=== PATIENT | female | born 1980 | race Hispanic/Latino ===

== ENCOUNTER 2017-11-06 19:51 | Emergency (ER) | payer OTHER, MEDICAID, SELFPAY ==
[2017-11-06 19:53] VITALS: BP 117/77; PULSE 102; RESP 14; TEMP 36.6; O2SAT 100
--- NOTE | 2017-11-06 19:56 | ED.PREGNANCY ---
HPI - General Chief complaint: Vaginal Bleeding Stated complaint: 13wks preg,bleeding and pain Time Seen by Provider: 11/06/17 19:56 Source: patient and family Mode of arrival: ambulatory Limitations: no limitations History of Present Illness HPI Narrative: 37-year-old female at 13 weeks presents with multiple family members in the chief complaint of mild pelvic cramping and some spotting. She denies any significant pain and has had no fever or chills nor nausea, vomiting or diarrhea. She denies dysuria, frequency or urgency. She had a normal ultrasound at 10 weeks demonstrating an intrauterine MD Complaint: vaginal bleeding Onset (ago): hour(s) Pain Consistency: intermittent and now resolved Location: pelvis Severity: mild Quality: Aching Radiation: pelvis Relieving factors: none Exacerbating factors: none Associated symptoms: vaginal bleeding Vaginal discharge: none Vaginal bleeding: light Patient : Yes Number of Weeks : 13 OB History - Current : no complications OB History - Previous Pregnancies: miscarriage Related Data : 3 Para: 0 Total number of abortions (spontaneous and elective): 2 Home Medications Medication Instructions Recorded Confirmed levothyroxine 75 mcg PO DAILY 11/06/17 11/06/17 prenat 115-iron qem-dinbw-vsw 1 tab PO DAILY 11/06/17 11/06/17 Allergies Allergy/AdvReac Type Severity Reaction Status Date / Time No Known Drug Allergies Allergy Verified 11/06/17 19:57 Review of Systems Review of Systems All systems reviewed & are unremarkable except as noted in HPI and below Constitutional Denies chills, Denies fever(s), Denies lethargy and Denies weakness Eyes Denies change in vision, Denies eye discharge, Denies irritation and Denies loss of vision ENT Ears, Nose, Mouth, and Throat: Denies change in voice, Denies neck pain and Denies sore throat Cardiovascular Denies chest pain, Denies irregular heart rhythm, Denies lightheadedness, Denies palpitations, Denies dyspnea, Denies dyspnea on exertion and Denies orthopnea Respiratory Denies cough, Denies dyspnea, Denies dyspnea on exertion and Denies wheezing Gastrointestinal Gastrointestinal: Denies abdominal pain, Denies change in bowel habits, Denies diarrhea, Denies nausea and Denies vomiting Genitourinary Reports abnormal vaginal bleeding, Denies hematuria, Reports pelvic pain, Denies flank pain, Denies urinary incontinence and Denies urinary urgency Musculoskeletal Denies neck pain Integumentary/Breasts Denies pruritus, Denies erythema, Denies rash and Denies wounds Neurologic Denies confusion, Denies loss of vision and Denies weakness Psychiatric Denies anxiety, Denies confusion, Denies depression, Denies homicidal ideation and Denies suicidal ideation Endocrine Denies palpitations Hematologic/Lymphatic Denies easy bruising Allergic/Immunologic Denies wheezing PMFSH - Past Medical History Medical history: Reports non-contributory Surgical history: Reports non-contributory 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 Patient : Yes Psychiatric history: Reports no psych history Family history: Reports no significant family history Exam Narrative Exam Narrative: Pleasant 37-year-old female is tearful but in no obvious physical distress Initial Vital Signs Initial Vital Signs: Vital Signs Temperature 97.8 F 11/06/17 19:53 Pulse Rate 102 H 11/06/17 19:53 Respiratory Rate 14 11/06/17 19:53 Blood Pressure 117/77 11/06/17 19:53 Pulse Oximetry 100 11/06/17 19:53 Const General: cooperative and well developed Nutritional Appearance: well nourished Orientation: alert, awake, oriented x3 and not confused HENMT Head: normocephalic and atraumatic Ears: external ears normal and TM's normal bilaterally Nose: external nose normal and No nasal discharge Face and sinus: sinuses nontender, face symmetric, no sinus tenderness and No dry mucous membranes Mouth: oral mucosae normal and moist mucous membranes Teeth and gingiva: dentition normal Throat: tonsils normal and uvula midline Eyes General: appearance normal, both eyes and all related structures Eyelids: eyelids normal Conjunctivae: conjunctivae normal Sclera: sclerae normal Pupils: PERRL EOM: EOM intact bilaterally Resp Effort & Inspection: normal respiratory effort, able to speak in complete sentences, no respiratory distress and no use of accessory muscles Auscultation: clear to auscultation bilaterally, no rales, no rhonchi and no wheezes GI Inspection: non-distended Palpation: soft, no hepatosplenomegaly, No guarding, No pulsatile mass and No tender Auscultation: normal bowel sounds Neuro General: alert, oriented x3, gait normal and no focal motor deficits Speech: speech normal Procedures Number of Weeks : 13 Course Orders Ordered: ED Orders 11/06/17 20:42 US OB <= 14 weeks fetus Stat 11/06/17 20:50 Urinalysis and Microscopic Stat 11/06/17 21:15 ABO RH Type Stat Complete Blood Count AUTO DIFF Stat Comprehensive Metabolic Panel Stat Vital Signs - 8 hr 11/06/17 19:53 11/06/17 21:27 11/06/17 22:19 Temperature 97.8 F Pulse Rate 102 H 88 72 Respiratory Rate 14 12 16 Blood Pressure 117/77 108/80 Blood Pressure [Left Arm] 111/69 Pulse Oximetry 100 100 98 MDM - OB/Uterine Contractions Medical Records Attestation: I reviewed the patient's medical records. Lab Data Attestation: I reviewed the patient's lab results. Result diagrams: 11/06/17 21:15 11/06/17 21:15 Lab Results 11/06/17 11/06/17 11/06/17 Range/Units 20:50 21:15 21:15 WBC 10.6 (4.5-11.0) X10^3/uL RBC 5.07 (4.0-5.2) X10^6/uL Hgb 15.0 (12.0-16.0) g/dL Hct 42.6 (36-46) % MCV 84.1 (80-100) fL MCH 29.6 (26-34) PG MCHC 35.2 (30-36) % RDW 13.1 (11.6-14.8) % Plt Count 206 (150-400) X10^3/uL Neut % (Auto) 80.5 H (50-75) % Lymph % (Auto) 13.3 L (25-40) % Long % (Auto) 5.3 (3-14) % Eos % (Auto) 0.6 L (2-4) % Baso % (Auto) 0.3 (0-2) % Neut # (Auto) 8600 H (9246-9324) /uL Sodium (137-145) mmol/L Potassium (3.4-5.1) mmol/L Chloride (98-107) mmol/L Carbon Dioxide (22-32) mmol/L BUN (7-17) mg/dL Creatinine (0.52-1.04) mg/dL Estimated GFR (>60) mL/min BUN/Creatinine Ratio (6-22) Glucose (70-100) mg/dL Calcium (8.4-10.2) mg/dL Total Bilirubin (0.2-1.3) mg/dL AST (14-36) IU/L ALT (9-52) IU/L Alkaline Phosphatase (38-126) U/L Total Protein (6.3-8.2) g/dL Albumin (3.5-5.0) g/dL Globulin (1.7-4.1) g/dL Albumin/Globulin Ratio (1.0-2.8) Urine Color Red Urine Appearance Cloudy Urine pH 8.0 (4.5-8.0) Ur Specific [place] 1.010 (1.000-1.035) Urine Protein 1+ H (Negative) Urine Glucose (UA) Negative (Normal) g/dL Urine Ketones Negative (NEGATIVE) Urine Occult Blood 3+ H (Negative) Urine Nitrate Negative (Negative) Urine Bilirubin Negative (NEGATIVE) Urine Urobilinogen 0.2 (0.2) E.U./dL Ur Leukocyte Esterase Negative (NEGATIVE) Urine RBC >100/hpf H (0-5/HPF) Urine WBC None seen (0-5/HPF) Ur Squamous Epith Cells 0-1 /hpf Urine Bacteria None seen (None) Ur Culture Indicated? Cult not indicated Micro UA Comment Not Reportable Blood Type O Positive 11/06/17 Range/Units 21:15 WBC (4.5-11.0) X10^3/uL RBC (4.0-5.2) X10^6/uL Hgb (12.0-16.0) g/dL Hct (36-46) % MCV (80-100) fL MCH (26-34) PG MCHC (30-36) % RDW (11.6-14.8) % Plt Count (150-400) X10^3/uL Neut % (Auto) (50-75) % Lymph % (Auto) (25-40) % Long % (Auto) (3-14) % Eos % (Auto) (2-4) % Baso % (Auto) (0-2) % Neut # (Auto) (2684-6130) /uL Sodium 142 (137-145) mmol/L Potassium 3.9 (3.4-5.1) mmol/L Chloride 105 (98-107) mmol/L Carbon Dioxide 24 (22-32) mmol/L BUN 8 (7-17) mg/dL Creatinine 0.50 L (0.52-1.04) mg/dL Estimated GFR > 60.0 (>60) mL/min BUN/Creatinine Ratio 16.0 (6-22) Glucose 99 (70-100) mg/dL Calcium 9.8 (8.4-10.2) mg/dL Total Bilirubin 0.3 (0.2-1.3) mg/dL AST 36 (14-36) IU/L ALT 47 (9-52) IU/L Alkaline Phosphatase 53 (38-126) U/L Total Protein 8.2 (6.3-8.2) g/dL Albumin 4.7 (3.5-5.0) g/dL Globulin 3.5 (1.7-4.1) g/dL Albumin/Globulin Ratio 1.3 (1.0-2.8) Urine Color Urine Appearance Urine pH (4.5-8.0) Ur Specific [place] (1.000-1.035) Urine Protein (Negative) Urine Glucose (UA) (Normal) g/dL Urine Ketones (NEGATIVE) Urine Occult Blood (Negative) Urine Nitrate (Negative) Urine Bilirubin (NEGATIVE) Urine Urobilinogen (0.2) E.U./dL Ur Leukocyte Esterase (NEGATIVE) Urine RBC (0-5/HPF) Urine WBC (0-5/HPF) Ur Squamous Epith Cells Urine Bacteria (None) Ur Culture Indicated? Micro UA Comment Blood Type Imaging Data US - abdomen: Radiologist's impression: [place] [address] Ultrasound Report Signed Patient: Luda Hernandez#: [id number] : 1980Acct:[id number] Age/Sex: 37 / FDate of Service: 11/06/17 Loc: ED Accession Number: [id number] Procedure: US OB <= 14 weeks fetus Ordering Provider: Riky Gann D.O. PROCEDURE: US OB <= 14 WEEKS FETUS INDICATIONS: pelvic pain, bleeding, OUTSIDE/PRIOR DATING DATA: Last menstrual period (LMP): Not known. LMP-based estimated date of delivery (FREDERICK): Not available. First dating scan (date and location): None. Estimated date of delivery (FREDERICK) from first dating scan: Not available. TECHNIQUE: Real-time scanning was performed of the fetus and maternal pelvic organs, with image documentation. COMPARISON: None. FINDINGS: Embryo: Single intrauterine gestational sac is seen containing single fetus in vertex presentation. crown-rump length measures 6.38 cm an estimated gestational age of 12 weeks 5 days. heart rate is 180 beats per minute. Placenta location is posterior, no placenta previa. Cervical length is 4.5 cm and is within normal limits. Measurement variability in dating: +/- 4 weeks by LMP, +/- 7 days by mean sac diameter (use before 6 weeks gestation if crown-rump length not able to be measured), +/- 5 days by crown-rump length (up to 8 weeks 6 days gestation), +/- 7 days by crown-rump length (up to 13 weeks 6 days gestation). Maternal organs: Bilateral ovaries are visualized and are within normal limits.. Limited images through the kidneys demonstrate no hydronephrosis. IMPRESSION: Single live intrauterine with fetus in vertex presentation. heart rate is 108 beats per minute. Estimated gestational age is 12 weeks 5 days. No gross abnormality is seen. Dictated by: Booker Nicholson M.D. on 11/06/2017 at 21:37 Approved by: Booker Nicholson M.D. on 11/06/2017 at 21:41 Discharge Plan Departure Patient Disposition: Home Clinical Impression: Pelvic pain affecting , Vaginal bleeding during Discharge Date/Time: 11/06/17 22:20 Interventions: ED Discharge Assessment Last Done: 11/06/17 22:19 Instructions: DI for -- Discomforts and Remedies Activity Restrictions/Additional Instructions: *You have been diagnosed with [pelvic pain and vaginal bleeding during ] *What to do: *Take medications as directed: vitamins *Follow up with your material carrier in 2-3 days, call for an appointment. Let them know you were seen in the Emergency Department and that we ask that you be seen in follow up *Return to ER if you should have any new, worsening or concerning symptoms, such as [increased bleeding, pain, fever or other bothersome symptoms ] Prescriptions: No Action levothyroxine 75 mcg Capsule 75 mcg PO DAILY RF: 0 prenat 115-iron rcc-poylv-rpf 29 mg iron- 1 mg-25 mg Tablet 1 tab PO DAILY RF: 0
--- NOTE | 2017-11-06 20:42 | DI.US.S_ITS ---
PROCEDURE: US OB <= 14 WEEKS FETUS INDICATIONS: pelvic pain, bleeding, OUTSIDE/PRIOR DATING DATA: Last menstrual period (LMP): Not known. LMP-based estimated date of delivery (FREDERICK): Not available. First dating scan (date and location): None. Estimated date of delivery (FREDERICK) from first dating scan: Not available. TECHNIQUE: Real-time scanning was performed of the fetus and maternal pelvic organs, with image documentation. COMPARISON: None. FINDINGS: Embryo: Single intrauterine gestational sac is seen containing single fetus in vertex presentation. crown-rump length measures 6.38 cm an estimated gestational age of 12 weeks 5 days. heart rate is 180 beats per minute. Placenta location is posterior, no placenta previa. Cervical length is 4.5 cm and is within normal limits. Measurement variability in dating: +/- 4 weeks by LMP, +/- 7 days by mean sac diameter (use before 6 weeks gestation if crown-rump length not able to be measured), +/- 5 days by crown-rump length (up to 8 weeks 6 days gestation), +/- 7 days by crown-rump length (up to 13 weeks 6 days gestation). Maternal organs: Bilateral ovaries are visualized and are within normal limits.. Limited images through the kidneys demonstrate no hydronephrosis. IMPRESSION: Single live intrauterine with fetus in vertex presentation. heart rate is 108 beats per minute. Estimated gestational age is 12 weeks 5 days. No gross abnormality is seen. Dictated by: Booker Nicholson M.D. on 11/06/2017 at 21:37 Approved by: Booker Nicholson M.D. on 11/06/2017 at 21:41
[2017-11-06 21:08] LABS: Bacteria Urine None Seen; WBC Urine None Seen (0-5/HPF)
[2017-11-06 21:09] LABS: Appearance Urine UA CLOUDY; Bilirubin Urine UA NEGATIVE (NEGATIVE); Color Urine UA RED; Glucose Urine UA NEGATIVE (Normal); Ketones Urine UA NEGATIVE (NEGATIVE); Leukocyte Esterase Urine UA NEGATIVE (NEGATIVE); Nitrite Urine UA Negative (Negative); Occult Blood Urine UA 3+ (Negative); Protein Urine UA 1+ (Negative); Urobilinogen Urine UA 0.2 E.U./dL (0.2)
--- NOTE | 2017-11-06 21:17 | PC.NURSE ---
reports three previous pregnancies that ended in miscarrage. pt states this time there is no pain but the bleeding is concerning.
--- NOTE | 2017-11-06 21:19 | PC.NURSE ---
family at bedside during ultrasound. pt sister in law helping to translate. pt states she does understand Fris[place] just likes to make sure she is not missing anyting.
[2017-11-06 21:26] LABS: Add Manual Diff / Slide Review NO; Basophils Percent Auto 0.3 % (0-2); Eosinophils Percent Auto 0.6 % (2-4); Hematocrit 42.6 % (36-46); Lymphocytes Percent Auto 13.3 % (25-40); Mean Corpuscular HGB Conc 35.2 % (30-36); Mean Corpuscular Hemoglobin 29.6 PG (26-34); Mean Corpuscular Volume 84.1 fL (80-100); Monocytes Percent Auto 5.3 % (3-14); Neutrophils Absolute Auto 8600 /uL (3000-5900); Neutrophils Percent Auto 80.5 % (50-75); Platelet Count 206 X10^3/uL (150-400); Red Blood Cell Count 5.07 X10^6/uL (4.0-5.2); Red Cell Distribution Width 13.1 % (11.6-14.8); White Blood Cell Count 10.6 X10^3/uL (4.5-11.0)
[2017-11-06 21:27] VITALS: BP 111/69; PULSE 88; RESP 12; O2SAT 100
[2017-11-06 21:29] LABS: RBC Urine >100/HPF (0-5/HPF)
[2017-11-06 21:30] LABS: Culture Indicated Urine Cult Not Indicated; Squamous Epithelial Cell Urine 0-1 /HPF
[2017-11-06 21:36] LABS: Alanine Aminotransferase 47 IU/L (9-52); Albumin 4.7 g/dL (3.5-5.0); Albumin Globulin Ratio 1.3 (1.0-2.8); Alkaline Phosphatase 53 U/L (38-126); Aspartate Aminotransferase 36 IU/L (14-36); Bilirubin Total 0.3 mg/dL (0.2-1.3); Blood Urea Nitrogen 8 mg/dL (7-17); Calcium 9.8 mg/dL (8.4-10.2); Carbon Dioxide 24 mmol/L (22-32); Chloride 105 mmol/L (98-107); Estimated Glomerular Filt Rate > 60.0 mL/min (>60); Globulin 3.5 g/dL (1.7-4.1); Glucose 99 mg/dL (70-100); HEMOLYSIS 24 (0-50); Potassium 3.9 mmol/L (3.4-5.1); Sodium 142 mmol/L (137-145); Total Protein 8.2 g/dL (6.3-8.2)
--- NOTE | 2017-11-06 22:06 | ED_ITS ---
HPI - General Chief complaint: Vaginal Bleeding Stated complaint: 13wks preg,bleeding and pain Time Seen by Provider: 11/06/17 19:56 Source: patient and family Mode of arrival: ambulatory Limitations: no limitations History of Present Illness HPI Narrative: 37-year-old female at 13 weeks presents with multiple family members in the chief complaint of mild pelvic cramping and some spotting. She denies any significant pain and has had no fever or chills nor nausea, vomiting or diarrhea. She denies dysuria, frequency or urgency. She had a normal ultrasound at 10 weeks demonstrating an intrauterine MD Complaint: vaginal bleeding Onset (ago): hour(s) Pain Consistency: intermittent and now resolved Location: pelvis Severity: mild Quality: Aching Radiation: pelvis Relieving factors: none Exacerbating factors: none Associated symptoms: vaginal bleeding Vaginal discharge: none Vaginal bleeding: light Patient : Yes Number of Weeks : 13 OB History - Current : no complications OB History - Previous Pregnancies: miscarriage Related Data : 3 Para: 0 Total number of abortions (spontaneous and elective): 2 Home Medications Medication Instructions Recorded Confirmed levothyroxine 75 mcg PO DAILY 11/06/17 11/06/17 prenat 115-iron hmr-cecsq-rzd 1 tab PO DAILY 11/06/17 11/06/17 Allergies Allergy/AdvReac Type Severity Reaction Status Date / Time No Known Drug Allergies Allergy Verified 11/06/17 19:57 Review of Systems Review of Systems All systems reviewed & are unremarkable except as noted in HPI and below Constitutional Denies chills, Denies fever(s), Denies lethargy and Denies weakness Eyes Denies change in vision, Denies eye discharge, Denies irritation and Denies loss of vision ENT Ears, Nose, Mouth, and Throat: Denies change in voice, Denies neck pain and Denies sore throat Cardiovascular Denies chest pain, Denies irregular heart rhythm, Denies lightheadedness, Denies palpitations, Denies dyspnea, Denies dyspnea on exertion and Denies orthopnea Respiratory Denies cough, Denies dyspnea, Denies dyspnea on exertion and Denies wheezing Gastrointestinal Gastrointestinal: Denies abdominal pain, Denies change in bowel habits, Denies diarrhea, Denies nausea and Denies vomiting Genitourinary Reports abnormal vaginal bleeding, Denies hematuria, Reports pelvic pain, Denies flank pain, Denies urinary incontinence and Denies urinary urgency Musculoskeletal Denies neck pain Integumentary/Breasts Denies pruritus, Denies erythema, Denies rash and Denies wounds Neurologic Denies confusion, Denies loss of vision and Denies weakness Psychiatric Denies anxiety, Denies confusion, Denies depression, Denies homicidal ideation and Denies suicidal ideation Endocrine Denies palpitations Hematologic/Lymphatic Denies easy bruising Allergic/Immunologic Denies wheezing PMFSH - Past Medical History Medical history: Reports non-contributory Surgical history: Reports non-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: Reports Spontaneous Patient : Yes Psychiatric history: Reports no psych history Family history: Reports no significant family history Exam Narrative Exam Narrative: Pleasant 37-year-old female is tearful but in no obvious physical distress Initial Vital Signs Initial Vital Signs: Vital Signs Temperature 97.8 F 11/06/17 19:53 Pulse Rate 102 H 11/06/17 19:53 Respiratory Rate 14 11/06/17 19:53 Blood Pressure 117/77 11/06/17 19:53 Pulse Oximetry 100 11/06/17 19:53 Const General: cooperative and well developed Nutritional Appearance: well nourished Orientation: alert, awake, oriented x3 and not confused HENMT Head: normocephalic and atraumatic Ears: external ears normal and TM's normal bilaterally Nose: external nose normal and No nasal discharge Face and sinus: sinuses nontender, face symmetric, no sinus tenderness and No dry mucous membranes Mouth: oral mucosae normal and moist mucous membranes Teeth and gingiva: dentition normal Throat: tonsils normal and uvula midline Eyes General: appearance normal, both eyes and all related structures Eyelids: eyelids normal Conjunctivae: conjunctivae normal Sclera: sclerae normal Pupils: PERRL EOM: EOM intact bilaterally Resp Effort & Inspection: normal respiratory effort, able to speak in complete sentences, no respiratory distress and no use of accessory muscles Auscultation: clear to auscultation bilaterally, no rales, no rhonchi and no wheezes GI Inspection: non-distended Palpation: soft, no hepatosplenomegaly, No guarding, No pulsatile mass and No tender Auscultation: normal bowel sounds Neuro General: alert, oriented x3, gait normal and no focal motor deficits Speech: speech normal Procedures Number of Weeks : 13 Course Orders Ordered: ED Orders 11/06/17 20:42 US OB <= 14 weeks fetus Stat 11/06/17 20:50 Urinalysis and Microscopic Stat 11/06/17 21:15 ABO RH Type Stat Complete Blood Count AUTO DIFF Stat Comprehensive Metabolic Panel Stat Vital Signs - 8 hr 11/06/17 19:53 11/06/17 21:27 11/06/17 22:19 Temperature 97.8 F Pulse Rate 102 H 88 72 Respiratory Rate 14 12 16 Blood Pressure 117/77 108/80 Blood Pressure [Left Arm] 111/69 Pulse Oximetry 100 100 98 MDM - OB/Uterine Contractions Medical Records Attestation: I reviewed the patient's medical records. Lab Data Attestation: I reviewed the patient's lab results. Result diagrams: 11/06/17 21:15 11/06/17 21:15 Lab Results 11/06/17 11/06/17 11/06/17 Range/Units 20:50 21:15 21:15 WBC 10.6 (4.5-11.0) X10^3/uL RBC 5.07 (4.0-5.2) X10^6/uL Hgb 15.0 (12.0-16.0) g/dL Hct 42.6 (36-46) % MCV 84.1 (80-100) fL MCH 29.6 (26-34) PG MCHC 35.2 (30-36) % RDW 13.1 (11.6-14.8) % Plt Count 206 (150-400) X10^3/uL Neut % (Auto) 80.5 H (50-75) % Lymph % (Auto) 13.3 L (25-40) % [place] % (Auto) 5.3 (3-14) % Eos % (Auto) 0.6 L (2-4) % Baso % (Auto) 0.3 (0-2) % Neut # (Auto) 8600 H (9298-9231) /uL Sodium (137-145) mmol/L Potassium (3.4-5.1) mmol/L Chloride (98-107) mmol/L Carbon Dioxide (22-32) mmol/L BUN (7-17) mg/dL Creatinine (0.52-1.04) mg/dL Estimated GFR (>60) mL/min BUN/Creatinine Ratio (6-22) Glucose (70-100) mg/dL Calcium (8.4-10.2) mg/dL Total Bilirubin (0.2-1.3) mg/dL AST (14-36) IU/L ALT (9-52) IU/L Alkaline Phosphatase (38-126) U/L Total Protein (6.3-8.2) g/dL Albumin (3.5-5.0) g/dL Globulin (1.7-4.1) g/dL Albumin/Globulin Ratio (1.0-2.8) Urine Color Red Urine Appearance Cloudy Urine pH 8.0 (4.5-8.0) Ur Specific [place] 1.010 (1.000-1.035) Urine Protein 1+ H (Negative) Urine Glucose (UA) Negative (Normal) g/dL Urine Ketones Negative (NEGATIVE) Urine Occult Blood 3+ H (Negative) Urine Nitrate Negative (Negative) Urine Bilirubin Negative (NEGATIVE) Urine Urobilinogen 0.2 (0.2) E.U./dL Ur Leukocyte Esterase Negative (NEGATIVE) Urine RBC >100/hpf H (0-5/HPF) Urine WBC None seen (0-5/HPF) Ur Squamous Epith Cells 0-1 /hpf Urine Bacteria None seen (None) Ur Culture Indicated? Cult not indicated Micro UA Comment Not Reportable Blood Type O Positive 11/06/17 Range/Units 21:15 WBC (4.5-11.0) X10^3/uL RBC (4.0-5.2) X10^6/uL Hgb (12.0-16.0) g/dL Hct (36-46) % MCV (80-100) fL MCH (26-34) PG MCHC (30-36) % RDW (11.6-14.8) % Plt Count (150-400) X10^3/uL Neut % (Auto) (50-75) % Lymph % (Auto) (25-40) % [place] % (Auto) (3-14) % Eos % (Auto) (2-4) % Baso % (Auto) (0-2) % Neut # (Auto) (8912-9278) /uL Sodium 142 (137-145) mmol/L Potassium 3.9 (3.4-5.1) mmol/L Chloride 105 (98-107) mmol/L Carbon Dioxide 24 (22-32) mmol/L BUN 8 (7-17) mg/dL Creatinine 0.50 L (0.52-1.04) mg/dL Estimated GFR > 60.0 (>60) mL/min BUN/Creatinine Ratio 16.0 (6-22) Glucose 99 (70-100) mg/dL Calcium 9.8 (8.4-10.2) mg/dL Total Bilirubin 0.3 (0.2-1.3) mg/dL AST 36 (14-36) IU/L ALT 47 (9-52) IU/L Alkaline Phosphatase 53 (38-126) U/L Total Protein 8.2 (6.3-8.2) g/dL Albumin 4.7 (3.5-5.0) g/dL Globulin 3.5 (1.7-4.1) g/dL Albumin/Globulin Ratio 1.3 (1.0-2.8) Urine Color Urine Appearance Urine pH (4.5-8.0) Ur Specific [place] (1.000-1.035) Urine Protein (Negative) Urine Glucose (UA) (Normal) g/dL Urine Ketones (NEGATIVE) Urine Occult Blood (Negative) Urine Nitrate (Negative) Urine Bilirubin (NEGATIVE) Urine Urobilinogen (0.2) E.U./dL Ur Leukocyte Esterase (NEGATIVE) Urine RBC (0-5/HPF) Urine WBC (0-5/HPF) Ur Squamous Epith Cells Urine Bacteria (None) Ur Culture Indicated? Micro UA Comment Blood Type Imaging Data US - abdomen: Radiologist's impression: [place] [address] Ultrasound Report Signed Patient: Luda Hernandez#: [id number] : 1980Acct:[id number] Age/Sex: 37 / FDate of Service: 11/06/17 Loc: ED Accession Number: [id number] Procedure: US OB <= 14 weeks fetus Ordering Provider: Riky Gann D.O. PROCEDURE: US OB <= 14 WEEKS FETUS INDICATIONS: pelvic pain, bleeding, OUTSIDE/PRIOR DATING DATA: Last menstrual period (LMP): Not known. LMP-based estimated date of delivery (FREDERICK): Not available. First dating scan (date and location): None. Estimated date of delivery (FREDERICK) from first dating scan: Not available. TECHNIQUE: Real-time scanning was performed of the fetus and maternal pelvic organs, with image documentation. COMPARISON: None. FINDINGS: Embryo: Single intrauterine gestational sac is seen containing single fetus in vertex presentation. crown-rump length measures 6.38 cm an estimated gestational age of 12 weeks 5 days. heart rate is 180 beats per minute. Placenta location is posterior, no placenta previa. Cervical length is 4.5 cm and is within normal limits. Measurement variability in dating: +/- 4 weeks by LMP, +/- 7 days by mean sac diameter (use before 6 weeks gestation if crown-rump length not able to be measured), +/ - 5 days by crown-rump length (up to 8 weeks 6 days gestation), +/- 7 days by crown-rump length (up to 13 weeks 6 days gestation). Maternal organs: Bilateral ovaries are visualized and are within normal limits.. Limited images through the kidneys demonstrate no hydronephrosis. IMPRESSION: Single live intrauterine with fetus in vertex presentation. heart rate is 108 beats per minute. Estimated gestational age is 12 weeks 5 days. No gross abnormality is seen. Dictated by: Booker Nicholson M.D. on 11/06/2017 at 21:37 Approved by: Booker Nicholson M.D. 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 Let them know you were seen in the Emergency Department and that we ask that you be seen in follow up *Return to ER if you should have any new, worsening or concerning symptoms , such as [increased bleeding, pain, fever or other bothersome symptoms ] Prescriptions: No Action levothyroxine 75 mcg Capsule 75 mcg PO DAILY RF: 0 prenat 115-iron emo-lownv-djs 29 mg iron- 1 mg-25 mg Tablet 1 tab PO DAILY RF: 0
[2017-11-06 22:19] VITALS: BP 108/80; PULSE 72; RESP 16; O2SAT 98
== END 2017-11-06 22:20 | disposition home or self-care (01) ==
PROVIDERS: Emergency Provider Emergency Medicine
DX: O26.899 Other specified pregnancy related conditions, unspecified trimester (principal); R10.2 Pelvic and perineal pain; O20.9 Hemorrhage in early pregnancy, unspecified; Z3A.13 13 weeks gestation of pregnancy
CPT/HCPCS: 36591; 76801; 80053; 81001; 85025; 86900; 86901; 99282; 99284